=== PATIENT | female | born 1980 | race Caucasian/White ===

== ENCOUNTER 2020-07-24 13:49 | Emergency (ER) | payer MEDICAID ==
[~2020-07-24] VITALS: Ht 172.7 cm; Wt 65.9 kg
[~2020-07-24 13:49] MED LIST: NO HOME MEDS
== END 2020-07-24 15:21 | disposition home or self-care (01) ==
LOC: ER 13:50
DX: B34.9 Viral infection, unspecified (principal); J02.9 Acute pharyngitis, unspecified; R43.8 Other disturbances of smell and taste; R09.89 Other specified symptoms and signs involving the circulatory and respiratory systems; R05 Cough; R51.9 Headache, unspecified; Z20.828 Contact with and (suspected) exposure to other viral communicable diseases; F17.210 Nicotine dependence, cigarettes, uncomplicated; Z98.890 Other specified postprocedural states
CPT/HCPCS: 36415; 87635; 99283